=== PATIENT | female | born 1940 | race Caucasian/White ===

== ENCOUNTER 2017-08-14 09:00 | Outpatient (RCR) | payer MEDICARE ==
[~2017-08-14 09:00] MED LIST: LISINOPRIL; LISINOPRIL10 MG PO; MELOXICAM; MELOXICAM15 MG PO; NEXIUM40 MG PO; SIMVASTATIN40 MG PO
== END 2017-08-26 ==
LOC: PT 09:00
PROVIDERS: ATTEND Orthopaedic Surgery
DX: Z96.611 Presence of right artificial shoulder joint (principal); Z47.1 Aftercare following joint replacement surgery; M25.611 Stiffness of right shoulder, not elsewhere classified; M62.81 Muscle weakness (generalized)
CPT/HCPCS: 97010; 97110 ×4; 97140 ×4; G8984; G8985

== ENCOUNTER 2018-12-13 14:15 | Inpatient (IN) | payer MEDICARE ==
[~2018-12-13] VITALS: Ht 172.7 cm; Wt 108.9 kg
[2018-12-13] MEDS ORDERED: SODIUM CHLORIDE 0.9% 1000ML 1,000 ML ONE (15:29)
--- NOTE | 2018-12-13 15:40 | Diagnostic Imaging Report ---
EXAM: CHEST SINGLE (PORTABLE) DATE: 12/13/2018 2:52 PM INDICATION: ^CHEST PAIN ^Y COMPARISON: None FINDINGS: Lines and tubes: None Heart size normal. No focal pulmonary opacity, pleural effusion or pneumothorax. Minimal atelectasis at the lung bases. Upper abdomen unremarkable. No acute bony abnormality. Right shoulder arthroplasty hardware noted. There is apparent resection of the distal right clavicle. IMPRESSION: No evidence for acute disease. Signed by: Dr. Srinivasa Kemp M.D. on 12/13/2018 3:37 PM
[2018-12-13 15:49] LABS: BASOPHILS # (AUTO) 0.1 (0.0-0.1); BASOPHILS % 0.8 % (0.0-1.0); EOSINOPHILS # (AUTO) 0.2 (0.0-0.4); EOSINOPHILS % 2.3 % (0.0-6.0); HEMATOCRIT 33.1 % (34.2-44.1); LYMPHOCYTES # (AUTO) 1.6 (1.0-3.2); MEAN CORPUSCULAR HEMOGLOBIN 30.8 pg (28-32); MEAN CORPUSCULAR HGB CONC 33.2 g/dL (31-35); MEAN CORPUSCULAR VOLUME 92.7 fL (81-99); MONOCYTES # (AUTO) 0.6 (0.2-0.8); MONOCYTES % 9.2 % (4.4-11.3); NEUTROPHILS # (AUTO) 4.2 (2.1-6.9); NEUTROPHILS % 62.8 % (38.7-80.0); PLATELET COUNT 165 x10e3/uL (140-360); RED BLOOD COUNT 3.57 x10e6/uL (3.6-5.1); RED CELL DISTRIBUTION WIDTH 18.3 % (11.7-14.4)
[2018-12-13 15:50] LABS: CLARITY,URINE CLEAR (CLEAR); COLOR,URINE YELLOW (YELLOW)
[2018-12-13 15:51] LABS: BILIRUBIN,URINE NEGATIVE (NEGATIVE); EPITHELIAL CELLS,URINE FEW /LPF; KETONES,URINE NEGATIVE (NEGATIVE); LEUKOCYTE ESTERASE ,URINE TRACE (NEGATIVE); NITRITE,URINE NEGATIVE (NEGATIVE); PROTEIN,URINE DIPSTICK NEGATIVE (NEGATIVE); URINE UROBILINOGEN 0.2 mg/dL (0.2 - 1)
[2018-12-13 16:06] LABS: ALBUMIN 2.9 g/dL (3.5-5.0); ALBUMIN/GLOBULIN RATIO 0.8 (0.8-2.0); ANION GAP 13.2 mmol/L (8-16); CREATININE, SERUM 1.39 mg/dL (0.57-1.11); POTASSIUM 4.2 mmol/L (3.5-5.1)
[2018-12-13 16:07] LABS: INR 1.08; PARTIAL THROMBOPLASTIN TIME 27.4 seconds (23.8-35.5); PROTHROMBIN TIME 14.5 seconds (11.9-14.5)
[2018-12-13 16:12] LABS: CREATINE KINASE MB 2.2 ng/mL (0-5.0)
[2018-12-13] MEDS ORDERED: CEFTRIAXONE SOD 1 GM/NS 50 ML 50 ML IV ONE (16:15)
--- NOTE | 2018-12-13 16:42 | Diagnostic Imaging Report ---
EXAMINATION: Head CT HISTORY: Dizziness, disoriented, blurry vision COMPARISON: None. TECHNIQUE: Multidetector axial images were obtained without contrast from the foramen magnum to the vertex . The images were reconstructed using brain and bone algorithms. Thin section brain images were reformatted into coronal and sagittal planes. Image quality: Motion/streaking artifact limits the evaluation of the skull base and posterior cranial fossa. Dose modulation, iterative reconstruction, and/or weight based adjustment of the mA/kV was utilized to reduce the radiation dose to as low as reasonably achievable. FINDINGS: Parenchyma: 1. Few scattered white matter hypodensities, most likely nonspecific chronic microvascular ischemic changes. 2. No mass or hemorrhage. No CT evidence of acute territorial vascular insult. Extra-axial spaces:No abnormal density. No extra-axial fluid collections Brain volume: Normal for age. Ventricles: No hydrocephalus or displacement. Arteries: No density suggestive of thrombus. Dural sinuses: No abnormal density. Extra-axial spaces: No abnormal density. Foramen magnum: No mass, Chiari malformation, or basilar invagination. Sella: No obvious mass. Paranasal/mastoid sinuses: Imaged portions unremarkable. Skull/Scalp: No lytic or blastic lesions. No fractures. IMPRESSION: 1. No acute intracranial abnormalities. 2. Mild chronic microvascular ischemic changes. Signed by: Dr. Darlene Yusuf M.D. on 12/13/2018 4:39 PM
[2018-12-13] MEDS ORDERED: SODIUM CHLORIDE 0.9% 1000ML 1,000 ML IV SCH (17:45)
[2018-12-13] MEDS ORDERED: METFORMIN HCL500 MG PO (17:59)
[2018-12-13] MEDS ORDERED: LYRICA75 MG PO (17:59)
[2018-12-13] MEDS ORDERED: POTASSIUM CHLO10 ME1 PO (17:59)
[2018-12-13] MEDS ORDERED: DEXTROSE 50% SYRINGE 50 ML IV PRN (18:30)
--- OUTSIDE RECORDS SUMMARY | 2018-12-13 18:37 | XMS REPORT ---
Author Author [facility] Address Unknown Phone Unavailable Care Team Providers Care Aoc Director Combat Plans Officer Name Role Phone Elieser GARCIA Unavailable Unavailable Payers Payer Name Policy Type Policy Number Effective Date Expiration Date Problems This patient has no known problems. Allergies, Adverse Reactions, Alerts Allergy Name Allergy Type Status Severity Reaction(s) Onset Date Inactive Date Treating Clinician Comments Sulfa (Sulfonamide Antibiotics) DA Active HI 2018-12-10 00:00:00 Sulfa (Sulfonamide Antibiotics) DA Active HI 2018-12-09 00:00:00 Sulfa (Sulfonamide Antibiotics) DA Active U 2016-03-29 00:00:00 Medications This patient has no known medications. Results Test Description Test Time Test Comments Text Results Atomic Results Result Comments CT BRAIN 2018-12-13 16:37:00 [place] [address] Patient Name: FANTA SANTORO MR #: [id number] : 1940 Age/Sex: 77/F Req #: [id number] Adm Physician: Ordered by: KHADIJAH GARCIA MD Report #: [id number] Location: ER Room/Bed: Procedure: [id number] CT/CT BRAIN WO Exam Date: 12/13/18 Exam Time: 1550 REPORT STATUS: Signed EXAMINATION: Head CT HISTORY: Dizziness, disoriented, b lurry vision COMPARISON: None. TECHNIQUE: Multidetector axial images were obtained without contrast from the foramen magnum to the vertex . The images were reconstructed using brain and bone algorithms. Thin section brain images were reformatted into coronal and sagittal planes. Image quality: Motion/streaking artifact limits the evaluation of the skull base and posterior cranial fossa. Dose modulation, iterative reconstruction, and/or weight based adjustment of the mA/kV was utilized to reduce the radiation dose to as low as reasonably achievable. FINDINGS: Parenchyma: 1. Few scattered white matter hypodensities, most likely nonspecific chronic microvascular ischemic changes. 2. No mass or hemorrhage. No CT evidence of acute territorial vascular insult. Extra-axial spaces:No abnormal density. No extra-axial fluid collections Brain volume: Normal for age. Ventricles: No hydrocephalus or displacement. Arteries : No density suggestive of thrombus. Dural sinuses: No abnormal density. Extra-axial spaces: No abnormal density. Foramen magnum: No mass, Chiari malformation, or basilar invagination. Sella: No obvious mass. Paranasal/mastoid sinuses: Imaged portions unremarkable. Skull/Scalp: No lytic or blastic lesions. No fractures. IMPRESSION: 1. No acute intracranial abnormalities. 2. Mild chronic microvascular ischemic changes. Signed by: Dr. Chemo Yusuf M.D. on 12/13/2018 4:39 PM Dictated By: CHEMO YUSUF MD Transcribed By: FIORELLA on 12/13/18 1639 COPY TO: KHADIJAH GARCIA MD CHEST SINGLE (PORTABLE) 2018-12-13 15:35:00 [place] [address] Patient Name: FANTA SANTORO MR #: [id number] : 1940 Age/Sex: 77/F Req #: [id number] Adm Physician: Ordered by: KHADIJAH GARCIA MD Report #: [id number] Location: ER Room/Bed: Procedure: [id number] DX/CHEST SINGLE (PORTABLE) Exam Date: Exam Time: REPORT STATUS: Signed EXAM: CHEST SINGLE (PORTABLE) DATE: 12/13/2018 2:52 PM INDICATION: CHEST PAIN Y COMPARISON: None FINDINGS: Lines and tubes: None Heart size normal. No focal pulmonary opacity, pleural effusion or pneumothorax. Minimal atelectasis at the lung bases. Upper abdomen unremarkable. No acute bony abnormality. Right shoulder arthroplasty hardware noted. There is apparent resection of the distal right clavicle. IMPRESSION: No evidence for acute disease. Signed by: Dr. Naomy Woodard M.D. on 12/13/2018 3:37 PM Dictated By: NAOMY WOODARD MD 36 Transcribed By: FIORELLA on 12/13/181536 COPY TO: KHADIJAH GARCIA MD - XR FLUORO FOR SPINE INJ 2018-12-10 13:37:00 Patient Name: FANTA SANTORO Unit No: [id number] EXAMS: CPT CODE: [id number] XR FLUORO FOR SPINE INJ 07404 LUMBAR TRANSFORAMINAL INJECTION REFERRING PHYSICIAN: PREOPERATIVE DIAGNOSIS: Degenerative Lumbar Disc Disease. POSTOPERATIVE DIAGNOSIS: Lumbar radiculopathy PROCEDURES PERFORMED 1. Fluoroscopically guided needle localization of the bilateral L5, right L4 spinal nerve/nerves with transforaminal epidural steroid injection/injections. 2. Transforaminal epidurogram/epidurograms at bilateral L5, right L4. FINDINGS: Poor filling all. Concordant provocation right L4 hip right L5 buttock. Pain relief- %. ANTIBIOTIC: Cefazolin ESTIMATED BLOOD LOSS: Minimal ANESTHESIA: (TIVA )Total intravenous anesthetic (patient intolerant to sedatives and hypnotics) COMPLICATIONS: None DETAILS OF PROCEDURE: After obtaining stable vital signs, informed consent and IV access, with no known contraindications to proceeding, the patient was taken to the fluoroscopy suite and placed in a prone position with all extremities padded and appropriate monitors placed. A sterile prep and drape was performed over the lumbosacral spine. Using fluoroscopic visualization at each level the insertion site was marked for a paravertebral approach to the foramen. Using standard technique, a 25 gauge needle was advanced to the base of the pedicle. In AP view, final positioning was obtained outside the 6 on the clock position on the pedicle. Then, 1 ml of Isovue-300 contrast was injected to produce the epidurograms. No paresthesias were elicited with needle insertion or injection and there were no signs of intravascular or intrathecal uptake. Then, with 1 ml of 4% lidocaine and 10 mg of triamcinolone was injected incrementally with frequent negative aspirations. There were no signs of intravascular or intrathecal uptake. Each subsequent level was done using the same technique and medications. The patient's vital signs remained stable. The patient was taken to the PACU in good condition. at 9819 Reported and signed by: Eb Coronado M.D. [facility] NAME: FANTA SANTORO [address] [facility] PHYS: Eb Ramirez MD [place], [place] [address] : 1940 AGE: 77 SEX: F LOC: [place] PHONE #: [phone] EXAM DATE: 12/10/2018 STATUS: REG [facility] FA[place] #: [phone] RAD #: D/C DT PAGE 1 Signed Report (CONTINUED) Patient Name: FANTA SANTORO Unit No: [id number] EXAMS: CPT CODE: [id number] XR FLUORO FOR SPINE INJ 54914 <Continued> CC: Eb Coronado MD Technologist: CARL CÁRDENAS RT(R) Transcribed D/ (5525) tWERO [facility] NAME: FANTA SANTORO [address] [facility] PHYS: Eb Ramirez MD [place], [place] [address] : 1940 AGE: 77 SEX: F LOC: [place] PHONE #: [phone] EXAM DATE: 12/10/2018 STATUS: REG [facility] [place] FAX #: [phone] RAD #: D/C DT PAGE 2 Signed Report Patient Name: FANTA SANTORO Unit No: [id number] EXAMS: CPT CODE: [id number] XR FLUORO FOR SPINE INJ 52194 <Continued> Orig Print D/T: S: 12/10/2018 (1340) [facility] NAME: FANTA SANTORO [address] [facility] PHYS: DOCUD - Doctor,Eb Tomlinson MD [place], [place] [address] : 1940 AGE: 77 SEX: F LOC: [place] PHONE #: [phone] EXAM DATE: 12/10/2018 STATUS: REG [facility] [place] FAX #: [phone] RAD #: D/C DT PAGE 3 Signed Report GLUBED 2018-12-10 13:26:00 GLUBED (test code=GLUBED) 87 mg/dL 60-125 [id number] 11:59:00* Test Item Value Reference Range Comments GLUBED (test code=GLUBED) 101 mg/dL 60-125
--- OUTSIDE RECORDS SUMMARY | 2018-12-13 18:37 | XMS REPORT | Clinical Summary ---
Author Author [facility] Address Unknown Phone Unavailable Care Team Providers Care Fuselage Framer Name Role Phone Sandra Sherwood MD PCP Allergies Comments Active Allergy Reactions Severity Noted Date Not sure what reaction is Sulfa (Sulfonamide Other (See 04/09/2017 Antibiotics) Comments) Medications End Date Status Medication Sig Dispensed Refills Start Date Active lisinopril Take 20 mg by 0 (PRINIVIL,ZESTRIL) 20 mg mouth daily. tablet Active metFORMIN (GLUCOPHAGE) Take 500 mg 0 500 mg tablet by mouth daily with breakfast. Active omeprazole (PriLOSEC) 40 Take 40 mg by 0 MG capsule mouth daily. Patient takes it 3 times a week Active propranolol (INDERAL) 20 Take 20 mg by 0 MG tablet mouth 2 (two) times a day. Active simvastatin (ZOCOR) 40 MG Take 40 mg by 0 tablet mouth nightly. Active gabapentin (NEURONTIN) Take 1 30 capsule 1 300 mg capsule (300 7 capsuleIndications: Acute mg total) by pain of right shoulder mouth daily. 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 Last Filed Vital Signs Not on file Plan of Treatment Health Maintenance Due Date Last Done Comments SHINGLES VACCINES (#1) 1988 65+ PNEUMOCOCCAL VACCINE 12/31/2003 (1 of 2 - PCV13) PNEUMOCOCCAL 12/31/2003 POLYSACCHARIDE VACCINE AGE 65 AND OVER INFLUENZA VACCINE 03/27/2019 Implants Device Identifier Shelf Expiration Date Model / Serial / Lot Implanted Type Area Manufactur er 08/05/2020 [id number] / / [id number] 6.5mm Center Screw - 44mm - IPM Right: Shoulder KENYATTA [id number] IMPLANT ORTHOP[employer]IC Implanted: Qty: 1 on 05/04/2017 by DEVICES Jony Byrd MD [id number] [id number] / / Shoulder Glenoid Baseplate Reunion IPM Right: Shoulder KENYATTA Rsa - [id number] IMPLANT ORTHOPEDIC Implanted: Qty: 1 on 05/04/2017 by DEVICES Jony Byrd MD [id number] 2E 3606 / / Glenosphere - 36mm Chioma X 6mm Thk IPM N/A: N/A KENYATTA 2mm Eccentric - [id number] IMPLANT ORTHOPEDIC Implanted: Qty: 1 on 05/04/2017 by DEVICES Jony Byrd MD [id number] [id number] / / 4.5mm Peripheral Screw - 36mm - IPM Right: Shoulder KENYATTA [id number] IMPLANT ORTHOPEDIC Implanted: Qty: 1 on 05/04/2017 by DEVICES Jony Byrd MD [id number] [id number] / / 4.5mm Peripheral Screw - 24mm - IPM Right: Shoulder KENYATTA [id number] IMPLANT ORTHOPEDIC Implanted: Qty: 1 on 05/04/2017 by DEVICES Jony Byrd MD 02/16/2022 [id number] P 2011 / / [id number] Reunion Tsa - Press-Fit Humeral IPM Right: Shoulder KENYATTA Stem 12mm - [id number] IMPLANT ORTHOPEDIC Implanted: Qty: 1 on 05/04/2017 by DEVICES Jony Byrd MD 11/15/2021 [id number] S 3604 / / [id number] Humeral Insert - 36mm X 4mm IPM Right: Shoulder KENYATTA Standard - [id number] IMPLANT ORTHOPEDIC Implanted: Qty: 1 on 05/04/2017 by DEVICES Jony Byrd MD 5570 3604 / / Humeral Cup - 36mm Chioma X 4mm Thk - IPM N/A: N/A KENYATTA [id number] IMPLANT ORTHOPEDIC Implanted: Qty: 1 on 05/04/2017 by DEVICES Jony Byrd MD [id number] [id number] / / 4.5mm Peripheral Screw - 36mm - IPM Right: Shoulder KENYATTA [id number] IMPLANT ORTHOPEDIC Implanted: Qty: 1 on 05/04/2017 by DEVICES Jnoy Byrd MD [id number] [id number] / / 4.5mm Peripheral Screw - 36mm - IPM Right: Shoulder KENYATTA [id number] IMPLANT ORTHOPEDIC Implanted: Qty: 1 on 05/04/2017 by DEVICES Jony Byrd MD 08/26/2018 [id number] / / [id number] Cement Bone Full-Dose Premxd W/ Surgical Right: Shoulder KENYATTA Tobr Simplex P Pack 10/Ea - Bone ORTHOPEDIC [id number] Cement S Implanted: Qty: 1 on 05/04/2017 by HIPS-KNEES Jony Villarreal MD Results Not on fileafter 12/12/2017 Insurance Payer Benefit Subscriber ID Type Phone Address Plan / Group HUMANA MEDICARE HUMANA xxxxxxxxx PPO MEDICARE PPO/PFFS/E [facility] Advance Directives Patient has advance care planning documents on file. For more information, mary pereyra contact: Joshua Chen [address] [place] [address]
--- OUTSIDE RECORDS SUMMARY | 2018-12-13 18:37 | XMS REPORT | Encounter Summary ---
Author Organization Unknown Address [address] [place] [address] Phone [phone] Care Team Providers Care Mortuary Technician Name Role Phone Dr. Sandra Sherwood 3 [phone] Sandra Sherwood MD 3 [phone] Michael Juan MD 82 [phone] Wesly Roy (Spouse) 62 [phone] Yareli Martinez MD 118 [phone] Nakul Omer DPM 120 [phone] Gabe Cary MD 121 [phone] Michael Watters 130 [phone] Jony Villarreal MD 130 [phone] Geoffrey Trevino OD 240 [phone] Reason for Visit Hyperthyroidism; Type 2 diabetes mellitus without complication Instructions 1. Benign essential hypertension 2. Type 2 diabetes mellitus metformin 500 mg tablet 3. Depression screening learning about depression 4. At risk for falls preventing falls: care instructions 5. Body mass index 30+ - obesity learning about healthy weight 6. Normal grief reaction Discussion Note: None recorded. Plan of Care Reminders Provider Appointments Est Patient 02/24/2019 9:30AM Sandra Sherwood MD Lab None recorded. Referral None recorded. Procedures None recorded. Surgeries None recorded. Imaging None recorded. Medications Name Start Date qd diclofenac 1 % topical gel folic acid one tablet per day folic acid 1 mg tablet Humira Pen 40 mg/0.8 mL subcutaneous kit once every other week lisinopril 20 mg tablet TAKE ONE TABLET BY MOUTH DAILY Lyrica 75 mg capsule Take 1 capsule twice a day by oral route. metformin 500 mg tablet TAKE ONE TABLET BY MOUTH DAILY methotrexate six tablets once a week methotrexate sodium 2.5 mg tablet 6 tablets once weekly omeprazole 40 mg capsule,delayed release TAKE ONE CAPSULE BY MOUTH DAILY NEEDED simvastatin 40 mg tablet Take 1 tablet every day by oral route. Medications Administered None recorded. Vitals Height Weight BMI Blood Pressure 5 ft 8 in 239.5 lbs 36.4 kg/m2 130/70 mm[Hg] Lab Results None recorded. Allergies Code Code System Name Reaction Severity Status Onset Sulfa (Sulfonamide Antibiotics) Active Problems Name Status Onset Date Source Type 2 Diabetes Mellitus without Complication Active 04/24/2016 Pure Hypercholesterolemia Active 04/24/2016 Benign Essential Hypertension Active 04/24/2016 Gastroesophageal Reflux Disease without Esophagitis Active 04/24/2016 Hyperthyroidism Active 01/20/2017 Multinodular Goiter Active 02/23/2017 Rheumatoid Arthritis Active 02/23/2017 Chronic Kidney Disease Stage 3 Active 02/24/2017 Amputated Toe Active 01/07/2018 Peripheral Vascular Disease Active 01/20/2018 Osteopenia Active 02/16/2018 Acid Reflux Active 04/11/2018 Procedures Date Name Performed by 08/27/2014 Knee Surgery Information not available 12/21/2009 Colonoscopy Information not available Carpal Tunnel Surgery Information not available Shoulder Surgery Procedure Information not available Foot/toes Surgery Procedure Information not available Back Surgery Information not available Hysterectomy (Total) Information not available Vaccine List Vaccine Type influenza, high dose seasonal 05/25/20160.5 mL 07/02/20180.5 mL influenza, injectable, quadrivalent 05/27/2015 06/12/2017 pneumococcal conjugate PCV 13 05/25/20160.5 mL pneumococcal polysaccharide PPV23 06/01/20170.5 mL Tdap 04/24/20160.5 mL zoster 06/01/20170.65 mL Social History Smoking Status Unknown If Ever Smoked (1 PPW) Past Encounters 12/02/2018 Benign Essential Hypertension; Type 2 Diabetes Mellitus; Depression Screening; At Risk for Falls; Body Mass Index 30+ - Obesity; Normal Grief Reaction Sandra Sherwood MD: [address] [place] [address], Ph. History of Present Illness Note:77yo female presents with her daughter, Salima, Patient is wanting a refill of her metformin only. Last visit five months ago on 07/02/18.<div>Since last visit, pt was seen by Dr Geoffrey Trevino on 09/18/18 for diabetic eye exam at [facility]. No diabetic retinopathy, return in one year.</div><div>
</div><div>Pt is very sad as her in Sep. He had advanced dementia & multiple health issues. Recently observed his birthday on November 21 (he would have been 86yo) and their wedding anniversary on November 24 (58yrs this year). Has good support system for grief. Daughter living with her. Tearful with small reminders (for instance, checking into appt & changing marital status to ).</div><div>
</div><div>Rheum consult note, Saba Allen in Dr Cary's office from 10/31/18 reviewed regarding RA, OA, osteopenia. Continue Humira, MTX. Considering knee replacement this summer. Sees Dr Michael Watters, ortho & Dr Coronado, pain management. Reviewed 10/31/[address] Cary's office. Neg hepatitis panel. ESR 8, hgb 12.7, wbc 8.6, neg CRP, neg coccidiodes & histoplasma Antibodies, glu 110, GFR 54, Na 143, K 4.8, AST 13, quantiferon gold TB neg.</div><div>Continuing on both MTX & Humira for RA. No change to medication doses. </div><div>
</div><div><div>Previously:< /div><div><div>Saw electrical prospector, Dr. Tyra Jhaveri in Jul 2017 for cardiac stress test & echo - normal per pt report. </div><div>Saw Dr. Martinez, traffic representative in Jul. Stable kidney fxn - no change in medication. No need to return unless change in status.</div><div>Saw dev technical mgr, Dr. Rolanda Kyle regarding hyperthyroidism & thyroid nodule. She said to observe. No need to return unless change in status.<div><span style="font-size: 14px;">Had right< /span><span style="font-size: 14px;"> shoulder replacement on Sunday, May 04, [address] [facility] [address] Villarreal, ortho</span><span style="font-size: 14px;">.< /span>
</div><div><span style="font-size: 14px;">Had right trigger finger of right middle finger - has seen Dr. Santana in past & had injection to that finger - was told with next recurrence would need surgery.</span></div><div ><div><span style="font-size: 14px;">Saw podiatry, Dr. Nakul Omer (one month after starting Lyrica for foot cramps). Lyrica working.</span>
</div><div>< div>
</div><div>Last mammogram about 2014. Last DEXA in 2013. Does not want order at this time.
</div><div>Last colonoscopy 2009. Does not want order at this time.</div><div>No CP or SOB. No lightheadedness.</div></div></div></div>< /div></div> Review of Systems:ROS as noted in the HPI Review of Systems Comprehensive General Adult ROS Reported By: Patient Constitutional: Constitutional: no fever Eyes: Eyes: no vision change Cardiovascular: Cardiovascular: no chest pain, no shortness of breath when walking, no shortness of breath when lying down, no palpitations, known heart murmur Respiratory: Respiratory: no cough, no wheezing, no shortness of breath Gastrointestinal: Gastrointestinal: no abdominal pain Musculoskeletal: Musculoskeletal: arthralgias/joint pain, swelling in the extremities Integumentary: Skin: no rashes Neurologic: Neurologic: no loss of consciousness, no headaches Psychiatric: Psych: depression, anxiety; grief of 's 09/2018 Physical Exam General Adult Exam (male), General Adult Exam (Female) Reported By: Patient Constitutional: General Appearance: healthy-appearing, obese. Level of Distress: NAD Psychiatric: Mental Status: active and alert, depressed; tearful regarding Eyes: Lids and Conjunctivae: non-injected, no discharge. Pupils: PERRLA. EOM: EOMI Neck: Neck: supple, trachea midline. Thyroid: no enlargement, non-tender, palpable nodule Lungs: Auscultation: breath sounds normal, good air movement, no wheezing, no rales/crackles Cardiovascular: Heart Auscultation: RRR, normal S1, normal S2, murmur, LALIT. Neck vessels: no carotid bruits. Pulses including femoral / pedal: normal throughout Abdomen: Inspection and Palpation: soft, non-distended, no tenderness, no guarding Musculoskeletal:: Joints, Bones, and Muscles: no tenderness, limited ROM. Extremities: no edema, no palpable cord, varicosities Neurologic: Gait and Station: normal gait Skin: Inspection and palpation: no rash, no lesions
--- NOTE | 2018-12-13 19:01 | Diagnostic Imaging Report ---
EXAMINATION: CT scan of the chest with contrast. TECHNIQUE: Helical CT images of the chest were performed from the lung apices to the level of the adrenal glands after the intravenous administration of 100 cc of Isovue 300. Coronal and sagittal reformatted images were obtained.Dose modulation, iterative reconstruction, and/or weight based adjustment of the mA/kV was utilized to reduce the radiation dose to as low as reasonably achievable. COMPARISON: None. CLINICAL HISTORY:Chest pain DISCUSSION: LINES/TUBES: None. LUNGS AND AIRWAYS: Age-related interstitial change with mosaic attenuation of the lungs. No consolidative pneumonia. No concerning mass lesion. The airways are normal, without endobronchial lesions. Filling defect within a right lower lobe pulmonary artery image 61 and within a left upper lobe pulmonary artery image 47. PLEURA: No pneumothorax or pleural effusions. HEART AND MEDIASTINUM: The thyroid gland is normal. The heart and pericardium are within normal limits. LYMPH NODES: There is no mediastinal, hilar or axillary lymphadenopathy. ABDOMEN: Bilateral renal calculi. BONES AND SOFT TISSUES: Right shoulder arthroplasty. IMPRESSION: Bilateral segmental pulmonary emboli. Signed by: Dr. Goran Gonzalez M.D. on 12/13/2018 6:57 PM
--- NOTE | 2018-12-13 19:32 | NUR ---
Report received and walking rounds complete. Pt A&O and in no apparent distress. Pt on room and tele. All safety measures ensured, bed alarm on, and call paredes near. Pt encouraged to use call paredes for assistance.
[2018-12-13 19:40] VITALS: BP 134/60
--- NOTE | 2018-12-13 19:42 | NUR ---
Asked ER about pt report that states pulmonary emboli. RN stated that he will check on report and that it may be a report in error of the wrong chart. Pt assessed and has no complaints of chest pain or discomfort, lungs sounds clear, and vitals stable. Will continue to monitor pt for any changes.
[2018-12-13 20:01] VITALS: BP 134/60
[2018-12-13] MEDS: INSULIN LISPRO 100 UNIT/1 ML 3ML VIAL SQ SCH (21:00)
[2018-12-13] MEDS ORDERED: SODIUM CHLORIDE 0.9% 50ML 50 ML ONE (21:49)
[2018-12-13] MEDS ORDERED: IOPAMIDOL 370 MG/ML 200 ML INFUS..BTL INJ ONE (21:49)
[2018-12-13 23:49] VITALS: BP 106/51
[2018-12-14] VITALS (7 sets, daily range): BP systolic 119–133; BP diastolic 58–70
[2018-12-14 00:03] LABS: CREATINE KINASE MB 1.6 ng/mL (0-5.0)
[2018-12-14 06:49] LABS: CREATINE KINASE MB 1.7 ng/mL (0-5.0)
--- NOTE | 2018-12-14 06:51 | NUR ---
Handoff report and walking rounds with outgoing shift supervisor film processing nurse. Pt rec'd awake, oriented, denies SOB, denies chest pain.
--- NOTE | 2018-12-14 06:56 | NUR ---
Report given and walking rounds complete. Pt resting in bed and in no apparent distress. All safety measures ensured.
[2018-12-14 07:04] LABS: CHOL/HDL RATIO 3.1 (3.0-3.6)
[2018-12-14] MEDS: INSULIN LISPRO 100 UNIT/1 ML 3ML VIAL SQ SCH ×4 (07:30→20:14)
[2018-12-14] MEDS ORDERED: LISINOPRIL 10 MG TAB PO SCH (09:00)
[2018-12-14] MEDS ORDERED: ENOXAPARIN SOD INJ 60 MG/0.6 ML SYR SC SCH (09:00)
--- NOTE | 2018-12-14 09:28 | NUR ---
RECEIVED REPORT FROM NATALIE IN OBS AWAITING FOR PT TO ARRIVE TO UNIT
[2018-12-14] MEDS: PREGABALIN 75 MG CAP PO SCH (09:30)
--- NOTE | 2018-12-14 10:04 | NUR ---
Pt transferred to 104 in stable condition with all personal belongings.
--- NOTE | 2018-12-14 10:13 | NUR ---
RECEIVED PT TO FLOOR AA0X3 PT FAMILY IS AT BEDSIDE PT IS IN NO S.S OF DISTRESS DENIES PAIN PT HAS A RIGHT AC 20 G NOW WITH IV FLUIDS AT 100 SITE IS CLEAN AND DRY WILL CONTINUE TO MONITOR AT THIS TIME, SIDE RAILSX2, BED WHEELS LOCKED ,CALL LIGHT IS WITHIN EASY REACH INSTRUCTED TO CALL FOR ASSISTANCE IF NEEDED
--- NOTE | 2018-12-14 10:19 | NUR ---
CASE MANAGEMENT INITIAL ASSESSMENT Sap Basis Administrator to bedside to discuss plan of care with patient/family. CM/SW role and care transitions discussed. Anticipated discharge plan discussed along with duration of care. CM/SW discussed patients right to make decisions in care. CM/SW work hours given. Patient lives: her daughter and grandson live with her in a single story home in [place]. Verified demographic info Admit/Transfer: ED Hospital/ER visits since last admit:DENIES ANY RECENT POA/Emergency contact: daughter: KYMBERLY WILKERSON [phone] Current/Previous Home Health: DENIES PCP/Follow-up Care: DR. ANITHA FLETCHER Current/Previous DME: RW, RW W/ SEAT, 2 WHEELCHAIRS Medications (referring to index hospitalization or the first time you were in the hospital) a. Were changes made in your medications when you were in the hospital on [date of index hospitalization]? Yes X No Not sure Explain: Note: If no or not sure, please skip to question d b. Did you understand the changes? Yes No Explain: c. Were you able to obtain your new medications right away? Yes No n/a SNF only Explain: d. Were you able to take your medications like the doctor wanted you to? XYes No Explain: e. Did the hospital give you an accurate, easy to understand list of medications when you left? XYes No n/a SNF only Explain: Scale of 1-10 how comfortable does patient feel with disease management in outpatient settin Other Services: Employment Status: RETIRED Areas of Concerns: DENIES ANY Referral Needs: DENIES ANY Education Needs: EDUCATED ON GARCIA LETTER IMM/GARCIA given and signed (if applicable): GARCIA LETTER EXPLAINED. VERBALIZED UNDERSTANDING AND SIGNED. COPY TO PT AND ORIGINAL PLACED ON CHART Goal for discharge: TO RETURN HOME W/O NEEDS CM/SW left business card at the bedside with contact information. Name and number was also written on the patients whiteboard. Patient verbalized understanding of discussion. CM will follow-up with ongoing discharge and transition of care needs.
[2018-12-14] MEDS: SODIUM CHLORIDE 0.45% 1,000 ML IV SCH ×2 (10:21→20:21)
--- NOTE | 2018-12-14 12:21 | NUR ---
PT SATURATING 93% ON RA. JOAO SOB PLACED PT ON 02 2L NC FOR COMFORT. SATURATIONS UP TO 97% AT THIS TIME WILL CONTINUE TO MONITOR
--- NOTE | 2018-12-14 12:40 | Consultation ---
DATE OF CONSULTATION: 12/14/2018 REASON FOR CONSULTATION: Chest pain. CONSULTING PHYSICIAN: Dr. Alex Bernard. HISTORY OF PRESENT ILLNESS: This is a pleasant 77-year-old female, who presented with generalized weakness. According to the patient, for the last two weeks, she has been having some sense of rotation movement, she has not been feeling real good. She has been having chest pain with deep breathing and feeling of lightheadedness. She stated the symptoms have been going on that she decided to come into the emergency room for further evaluation. She started having right-sided chest pain on a scale of 3/10 with no radiation that get worse with deep breathing. She had a chest x-ray done that showed no evidence of acute disease and CT of the chest done that showed bilateral segmental pulmonary emboli. She denied any palpitation, any diaphoresis, any nausea or vomiting. Troponin x3 was negative. EKG showed normal sinus rhythm with no ST abnormalities. PAST MEDICAL HISTORY: Hypertension, diabetes, hyperlipidemia, and GERD. PAST SURGICAL HISTORY: Bilateral shoulder surgery, hand surgery, back surgery, hysterectomy, and left knee replacement surgery. FAMILY HISTORY: Noncontributory. SOCIAL HISTORY: She lives at home alone. The recently . MEDICATIONS: She was on Nexium, metformin, potassium, Lyrica, meloxicam, lisinopril, and simvastatin. ALLERGIES: SHE IS ALLERGIC TO SULFA. REVIEW OF SYSTEMS: Negative except those mentioned above. PHYSICAL EXAMINATION: VITAL SIGNS: Temperature 98.8, heart rate 91, blood pressure 126/67, respirations 20, oxygen saturation 96% on room air. GENERAL: She is awake, alert, and oriented x3. HEENT: Mucous membranes moist. NECK: Supple. LUNGS: Bilateral clear to auscultation. CARDIOVASCULAR: S1, S2 present. ABDOMEN: Soft. NEUROLOGICAL: Intact. EXTREMITIES: With no edema. LABS: Sodium 139, potassium 4.2, chloride 108, CO2 of 22, BUN 27, creatinine 1.39, glucose 94. White blood cells 6.66, hemoglobin 11.0, hematocrit 33.1, platelet 165. PT 14.5, PTT 27.4, INR 1.08. IMPRESSION: 1. Chest pain. 2. Bilateral pulmonary emboli. 3. Diabetes. 4. Hyperlipidemia. 5. Renal insufficiency. PLAN: 1. We will go ahead and get echocardiogram to assess the LV and the valve function. 2. We will get bilateral lower extremity venous Doppler to rule out any DVT. 3. She had been started on Lovenox. We will continue the same. P.O. anticoagulation before discharge. 4. Resume her home blood pressure medications. Further cardiac workup pending clinical course. Thank you for this consultation. Dictated by Terrance Monge NP MD HOMAR Finch/JARET /[id number] SARAN
--- NOTE | 2018-12-14 12:54 | NUR ---
PT STATES HITTING HER RIGHT ELBOW WITH BED WHEN GETTING BACK TO BED SKIN ABRASION NOTED (ABOUT [id number] IN DIAMETER) COVERED WITH GAUZE AND TEGADERM AT THIS TIME SITE NO LONGER BLEEDING PT IS BACK IN BED RESTING COMFORTABLY WILL CONTINUE TO MONITOR
[2018-12-14 14:33] LABS: CREATINE KINASE MB 1.4 ng/mL (0-5.0)
--- NOTE | 2018-12-14 15:01 | History and Physical ---
PRIMARY CARE PHYSICIAN: CHIEF COMPLAINT: Chest pain, dizziness, generalized weakness, and low blood pressure associated with some shortness of breath on exertion. SUMMARY: This is a 77-year-old female having symptoms of generalized weakness, dizziness, and exertional shortness of breath with off-balance for the past two weeks worsening on the day of her presentation to the emergency room. The patient is otherwise stable. She is admitted. The patient denied of any chest pain currently. She is at rest. Echocardiogram is obtained. CT scan of the chest with contrast revealed bilateral subsegmental pulmonary embolism. Lovenox is initiated. PAST MEDICAL HISTORY: Hypertension, diabetes type 2, dyslipidemia, obesity. PAST SURGICAL HISTORY: Noncontributory. SOCIAL HISTORY: The patient does not smoke or use alcohol. No recreational drugs. ALLERGIES: TO SULFA. HOME MEDICATIONS: Nexium, lisinopril, meloxicam, metformin, potassium, simvastatin, and Lyrica. REVIEW OF SYSTEMS: As above. PHYSICAL EXAMINATION: VITAL SIGNS: Temperature is 98, blood pressure 126/67, pulse rate is 91, respirations 22. GENERAL: The patient seems comfortable. She is not in acute distress. HEENT: Normocephalic, atraumatic. Anicteric. NECK: Supple grossly. PULMONARY: Diminished breath sounds bilaterally without any wheezing or rales. CARDIOVASCULAR: Regular rate and rhythm. ABDOMEN: Morbidly obese. Nontender and nondistention. No guarding. EXTREMITIES: No cyanosis or edema. NEUROLOGIC: There is no gross focal deficit. Moving all extremities. LABORATORY DATA: Sodium is 139, potassium 4.2, chloride 108, bicarb 22, BUN 27, creatinine 1.39, glucose is 94. WBC 6.7, hemoglobin 11, hematocrit 33, platelets is 165. CT scan of the chest with contrast showed bilateral subsegmental pulmonary embolism. IMPRESSION: 1. Bilateral pulmonary subsegmental embolism. Per RN here overnight stating that the ED physician was called and notified on the bilateral pulmonary embolism on CT scan and he stated that this could be a wrong CT scan on a wrong patient. We will need confirmation. V/Q scan is ordered. Lovenox given and venous Doppler of the lower extremity ordered as well. 2. Multiple symptoms of fatigue, chest discomfort atypically, and dizziness and shortness of breath on exertion. PLAN: We will obtain a V/Q scan. Put the patient on Lovenox for now. Venous Doppler of the lower extremity. Echocardiogram. We will consult Dr. Stone Hernandez. Dr. Kade Corey is seeing the patient. We will continue to monitor the patient on Lovenox for now. Admit the patient. Hold off on lisinopril. IV fluids gently to wash out the contrast. We will continue to monitor the patient closely. MD MALLORY Ruiz/MODL /[id number]
--- NOTE | 2018-12-14 18:12 | Diagnostic Imaging Report ---
EXAM: CT Abdomen and Pelvis WITHOUT contrast INDICATION: ^PAIN ^[id number] ^[id number] COMPARISON: CT chest 12/13/2018 TECHNIQUE: Abdomen and pelvis were scanned utilizing a multidetector helical scanner from the lung base to the pubic symphysis without administration of IV contrast. Absence of intravenous contrast decreases sensitivity for detection of focal lesions and vascular pathology. Coronal and sagittal reformations were obtained. Routine protocol was performed. IV CONTRAST: None. ORAL CONTRAST: None RADIATION DOSE: Total DLP: 888.97 mGy*cm Estimated effective dose: (DLP x 0.015 x size factor) mSv COMPLICATIONS: None FINDINGS: LINES and TUBES: None. LOWER THORAX: Increased subsegmental atelectasis in both lung bases. HEPATOBILIARY: No focal hepatic lesions. No biliary ductal dilation. GALLBLADDER: No radio-opaque stones or sludge. No wall thickening. SPLEEN: No splenomegaly. PANCREAS: No focal masses or ductal dilatation. ADRENALS: No adrenal nodules KIDNEYS/URETERS: No hydronephrosis. No cystic or solid mass lesions. Multiple right lateral due to's 5 mm nonobstructing calcified stones, at least 10 on the right and 7 on the left. No calcified stones in the ureters. GI TRACT: No abnormal distention, wall thickening, or evidence of bowel obstruction. Appendix is not visualized. PELVIC ORGANS/BLADDER: The urinary bladder is unremarkable. Hysterectomy. LYMPH NODES: No lymphadenopathy. VESSELS: Mild atherosclerotic calcifications of the abdominal aorta and pelvic arteries without aneurysm. PERITONEUM / RETROPERITONEUM: No free air or fluid. BONES: Unremarkable. SOFT TISSUES: Unremarkable. IMPRESSION: Bilateral nonobstructing nephrolithiasis. Bibasilar atelectasis, increased since 12/13/2018. Signed by: Dr. Feli Amin M.D. on 12/14/2018 6:09 PM
--- NOTE | 2018-12-14 18:53 | Diagnostic Imaging Report ---
Ventilation/perfusion lung scan Clinical Information: 77 F with chest pain Comparison: CT chest with contrast 12/13/2018; chest radiograph 12/13/2018 Discussion: Xenon-133 gas 15 mCi was administered via inhalation. Dynamic images of the lungs in the posterior projection were obtained through single breath, equilibrium, and washout phases. Distribution of tracer activity is mildly irregular throughout the lungs. There are no segmental ventilatory defects. Washout of tracer is diffusely delayed with diffuse air trapping. Perfusion images of the lungs were obtained in multiple projections following intravenous administration of approximately 6 mCi of Tc-99m MAA. Distribution of tracer is irregular throughout the lungs. The contours of the lungs are well demarcated. Distribution of tracer activity is mildly irregular throughout the lungs. No segmental perfusion defects are seen. The perfusion images are well-matched to the ventilation images. The cardiomediastinal silhouette is unremarkable. Impression: 1. Scan findings represent a VERY LOW probability for acute pulmonary embolic disease based on the PIOPED II criteria. 2. Scan findings are consistent with diffuse parenchymal and/or obstructive lung disease. 3. Patient identification by the nuclear fuels research engineer who was present for the CT chest performed yesterday and performed the VQ scan today. The same patient had both studies and the patient was positively identified as Felicia Roy. Signed by: Dr. Teressa Child M.D. on 12/14/2018 6:50 PM
--- NOTE | 2018-12-14 19:57 | Consultation ---
DATE OF CONSULTATION: Pulmonary Consultation REASON FOR THE CONSULT: Pulmonary embolism. CHIEF COMPLALINT: Shortness of breath. HISTORY OF PRESENT ILLNESS: Ms. Roy is a 77-year-old female. She presented to the emergency room with complaints of shortness of breath and generalized weakness. She has been off balance for the past two weeks. She reported that she also had pleuritic chest pain when she was taking deep breaths. It has been going on for almost two weeks, progressively getting worse. In the emergency room, the patient underwent a CT chest, which showed segmental pulmonary embolism. However, there is a confusion that if she those films belong to her. She has been started on Lovenox. REVIEW OF SYSTEMS: GENERAL: Denies any fever or chills. HEAD: Denies any head trauma. ENT: Denies any earache. CVS: Chest pain, shortness of breath. RESPIRATORY: Shortness of breath. The rest of the review of systems are negative except as in the HPI. PAST MEDICAL HISTORY: Hypertension, diabetes. PAST SURGICAL HISTORY: Noncontributory. FAMILY AND SOCIAL HISTORY: She does not smoke and does not drink. Recently her . She lives with her daughter. PHYSICAL EXAMINATION: VITAL SIGNS: Temperature 98.5, pulse of 99, blood pressure 130/66, respiratory rate of 18, O2 saturation 98%. HEENT: Head is atraumatic, normocephalic. NECK: Supple. CHEST: Clear to auscultation bilaterally. No wheezing. HEART: S1, S2 audible. ABDOMEN: Soft, nontender. EXTREMITIES: No pedal edema. NEUROLOGIC: Awake and alert. LABORATORY DATA: White count of 6.6, hemoglobin 11.0, platelets 165. Chemistry; creatinine is 1.39. Sodium 139, potassium 4.2, BUN 27, creatinine 1.39, chloride is 108. CT of the chest was done, which shows segmental pulmonary embolism. I have reviewed the images. ASSESSMENT/PLAN: Ms. Roy is a 77-year-old female. She presented to the emergency room with shortness of breath. CTA of the chest showed pulmonary embolism. However, there is a confusion between the ER nursing report and radiology interpretation. We are unable to make sure that the images for her CT are hers, so I will do a V/Q scan to confirm the presence of pulmonary embolism. The patient will be continued on Lovenox in the meantime. MARIZA and CKD stable. MD DILIA Saul/MODNathanael /[id number]
[2018-12-14] MEDS: ENOXAPARIN SODIUM INJ 100 MG/ML SYR SC SCH (20:21)
[2018-12-14] MEDS: SIMVASTATIN 40 MG TAB PO SCH (20:21)
[2018-12-15] VITALS (10 sets, daily range): BP systolic 100–149; BP diastolic 55–76
[2018-12-15 06:07] LABS: BASOPHILS % 0.7 % (0.0-1.0); EOSINOPHILS # (AUTO) 0.2 (0.0-0.4); EOSINOPHILS % 3.8 % (0.0-6.0); HEMATOCRIT 30.9 % (34.2-44.1); HEMOGLOBIN 10.1 g/dL (12.0-16.0); LYMPHOCYTES # (AUTO) 1.1 (1.0-3.2); LYMPHOCYTES % 24.6 % (18.0-39.1); MEAN CORPUSCULAR HEMOGLOBIN 30.3 pg (28-32); MEAN CORPUSCULAR HGB CONC 32.7 g/dL (31-35); MEAN CORPUSCULAR VOLUME 92.8 fL (81-99); MONOCYTES # (AUTO) 0.5 (0.2-0.8); MONOCYTES % 10.7 % (4.4-11.3); NEUTROPHILS # (AUTO) 2.6 (2.1-6.9); NEUTROPHILS % 58.4 % (38.7-80.0); PLATELET COUNT 136 x10e3/uL (140-360); RED BLOOD COUNT 3.33 x10e6/uL (3.6-5.1); RED CELL DISTRIBUTION WIDTH 18.2 % (11.7-14.4)
[2018-12-15] MEDS: SODIUM CHLORIDE 0.45% 1,000 ML IV SCH ×2 (06:16→15:00)
[2018-12-15 06:30] LABS: ANION GAP 11.9 mmol/L (8-16); BLOOD UREA NITROGEN 13 mg/dL (7-26); BUN/CREATININE RATIO 15 (6-25); CALCIUM 8.3 mg/dL (8.4-10.2); CARBON DIOXIDE 24 mmol/L (22-29); CHLORIDE 109 mmol/L (98-107); CREATININE, SERUM 0.85 mg/dL (0.57-1.11); EST GLOMERULAR FILTRATION RATE > 60 ML/MIN (60-); GLUCOSE 97 mg/dL (74-118); POTASSIUM 3.9 mmol/L (3.5-5.1); SODIUM 141 mmol/L (136-145)
[2018-12-15] MEDS: INSULIN LISPRO 100 UNIT/1 ML 3ML VIAL SQ SCH ×4 (07:30→21:19)
[2018-12-15] MEDS: PREGABALIN 75 MG CAP PO SCH (08:09)
[2018-12-15] MEDS: ENOXAPARIN SODIUM INJ 100 MG/ML SYR SC SCH ×2 (08:09→20:30)
[2018-12-15] MEDS ORDERED: PREGABALIN 75 MG CAP PO SCH (17:00)
--- NOTE | 2018-12-15 17:40 | NUR ---
RECEIVED A CALL FROM TELE STATING PT HR ELEVATED TO THE 130S UPON ARRIVE TO ROOM V/S TAKEN AND PT READDS 100/55 HR OF 80 AND 91% ON RA. PLACED PT ON 2 L NC PT DENIES PAIN OR DISCOMFORT PAGED MD WARNER FOR ORDERS SPOKE WITH MD BAXTER TO GIVE ONE DOSE OF DIG IV NOW AND A STAT EGK
--- NOTE | 2018-12-15 17:57 | NUR ---
DIG GIVEN. POTATO GRADER IS AT BEDSIDE PT STATES PALPITATIONS WITH NO S.S AT THIS TIME
[2018-12-15] MEDS ORDERED: DIGOXIN INJ 0.25 MG/ML 2 ML AMP IV ONE (18:00)
--- NOTE | 2018-12-15 18:22 | NUR ---
SPOKE TO MD WARNER REGARDING EKG RESULTS AND UNRESOLVED TACHYCARDIA .RATE IN THE 130. STATES "JUST WATCH HER" NO ORDERS RECEIVED AT THIS TIME
[2018-12-15] MEDS: SIMVASTATIN 40 MG TAB PO SCH (20:30)
[2018-12-16] VITALS: BP 98/55
[2018-12-16] MEDS: SODIUM CHLORIDE 0.45% 1,000 ML IV SCH (02:40)
[2018-12-16 04:00] VITALS: BP 122/60
[2018-12-16 07:22] VITALS: BP 132/74
[2018-12-16] MEDS: INSULIN LISPRO 100 UNIT/1 ML 3ML VIAL SQ SCH (07:30)
--- NOTE | 2018-12-16 16:52 | Discharge Summary ---
CONSULTANTS: 1. Dr. Kade Corey. 2. Dr. Michael Rendon. FINAL DIAGNOSES: 1. Bilateral subsegmental pulmonary embolism associated with shortness of breath. 2. Multiple chronic baseline problems. SUMMARY: This is a 77-year-old female, who came in with increasing shortness of breath. CT of the chest with contrast showed that the patient does have subsegmental bilateral pulmonary embolism. The patient was placed on anticoagulant therapy. Subsequently, she underwent V/Q scan, which showed low probability. The patient had multiple risk factors. She is stable. Echocardiogram showed normal ejection fraction. Lower extremity venous Doppler was negative for any DVT. The patient is otherwise stable. At baseline, she does have inflammatory arthritis, hypertension. She is on Humira and multiple other medications. Her shortness of breath has subsided. She still has some increasing dyspnea on exertion, but much improved than previously. The patient will go home today, discussed with the patient at length. She will get Xarelto 20 mg daily for three months. Discussed with Dr. Rendon. The patient is stable, discharged home, follow up as an outpatient with her family doctor and with me if request. The patient is otherwise stable, discharged home today. MD MALLORY Ruiz/JARET /[id number]
== END 2018-12-16 09:18 | disposition home or self-care (01) | DRG 176 ==
LOC: ER 14:15 → ERHOLD 18:34 → IMCU 19:31 → MED/SURG 12-14 10:07 → OBSVTOIN 12-14 11:06
PROVIDERS: ADMIT Internal Medicine; ATTEND Internal Medicine
DX: I26.99 Other pulmonary embolism without acute cor pulmonale (principal); M19.90 Unspecified osteoarthritis, unspecified site; E11.9 Type 2 diabetes mellitus without complications; E78.5 Hyperlipidemia, unspecified; E03.9 Hypothyroidism, unspecified; N28.9 Disorder of kidney and ureter, unspecified
CPT/HCPCS: 36415; 70450; 71045; 71260; 74176; 78582; 80048; 80053; 80061; 81001; 82550; 82553; 82948; 83880; 84443; 84484; 85025; 85379; 85610; 85730; 93005; 93306; 93970; 96372; 99284; A9540; A9558; G0378; J0696; J1160; J1650; J7030; Q9967

== ENCOUNTER → 2019-05-06 | Outpatient (CLI) | payer MEDICARE ==
[~2019-05-06] MED LIST changes: +IOPAMIDOL 370 MG/ML 200 ML INFUS..BTL INJ ONE; +LYRICA75 MG PO; +METFORMIN HCL500 MG PO; +POTASSIUM CHLO10 ME1 PO; +SODIUM CHLORIDE 0.9% 500ML 500 ML ONE; +SODIUM CHLORIDE 0.9% 50ML 50 ML ONE
[2019-05-06 09:39] LABS: CREATININE, SERUM 1.07 mg/dL (0.57-1.11)
--- NOTE | 2019-05-06 11:18 | Diagnostic Imaging Report ---
CT of the chest, with contrast, 05/06/2019. History: History of pulmonary emboli. Comparison: CT chest 12/13/2018. Technique: Multidetector CT scanning of the chest was performed from the level of the apices to the upper abdomen after intravenous administration of contrast. Coronal and sagittal multiplanar reformations were obtained. RADIATION DOSE: Total DLP: 530 mGy*cm Dose modulation, iterative reconstruction, and/or weight based adjustment of the mA/kV was utilized to reduce the radiation dose to as low as reasonably achievable. Discussion: Chest: The atria, ventricles, aorta, and main pulmonary artery are normal in size. The pulmonary arteries are well-opacified without evidence of filling defect. Prior segmental emboli have resolved. The thyroid is unremarkable. There is no evidence of axillary or mediastinal adenopathy. There is bibasilar dependent atelectasis. There is no evidence of consolidation, mass, or pleural effusion. Limited evaluation of the upper abdomen shows normal adrenal glands. Bones and soft tissues: No acute abnormality. Advanced degenerative changes are present throughout the thoracic spine. IMPRESSION: Normal CT of the chest. Interval resolution of bilateral pulmonary emboli. Signed by: Dewey Patel on 05/06/2019 11:14 AM
== END ==
LOC: CT 08:21
PROVIDERS: ATTEND Internal Medicine Cardiovascular Disease
DX: I27.82 Chronic pulmonary embolism (principal)
CPT/HCPCS: 36415; 71260; 82565; 84520; 96360; J7040; Q9967

== ENCOUNTER → 2019-07-03 | Outpatient (CLI) | payer OTHER ==
[~2019-07-03] MED LIST changes: -IOPAMIDOL 370 MG/ML 200 ML INFUS..BTL INJ ONE; -SODIUM CHLORIDE 0.9% 500ML 500 ML ONE; -SODIUM CHLORIDE 0.9% 50ML 50 ML ONE
--- NOTE | 2019-07-03 12:59 | Diagnostic Imaging Report ---
Examination: MRI BRAIN WO CONTRAST History: Diplopia. Abnormal gait. Comparison studies: Head CT performed December 13, 2018 Technique: Sagittal T2; axial DWI, FLAIR, GRE or SWI, T1, Coronal FLAIR. Intravenous contrast: None Findings: Scalp: No abnormal signal. No masses. Bone marrow: Normal in signal intensity. Brain volume: Adequate for age. No volume loss. Ventricles: Normal in size and configuration. No hydrocephalus. Extra-axial spaces: No abnormalities. Parenchyma: Again demonstrated are patchy and punctate areas of T2/FLAIR hyperintensity in the periventricular and subcortical white matter, nonspecific. No masses, hemorrhage, or acute vascular insults. Suprasellar and sellar region: No abnormalities. Craniocervical junction: No abnormalities. The foramen magnum is patent. No Chiari malformations. Vessels: Normal flow-voids in the arteries and sinuses. Additional findings:Bilateral slitlike orbital lenses. IMPRESSION: No acute intracranial abnormalities, specifically, no acute infarct. Unchanged mild chronic microvascular ischemic change when compared to prior head CT from December 13, 2018. Signed by: Dr. Shauna Monterroso M.D. on 07/03/2019 12:56 PM
== END ==
LOC: MRI 08:27
PROVIDERS: ATTEND Internal Medicine
DX: H53.2 Diplopia (principal); I48.91 Unspecified atrial fibrillation; R26.9 Unspecified abnormalities of gait and mobility; R42 Dizziness and giddiness; W01.0XXA Fall on same level from slipping, tripping and stumbling without subsequent striking against object, initial encounter
CPT/HCPCS: 70551

== ENCOUNTER 2019-07-21 10:43 | Outpatient (RCR) | payer MEDICARE | END 2019-07-26 | LOC: PT 10:43 | PROVIDERS: ATTEND Internal Medicine | DX: Z96.611 Presence of right artificial shoulder joint (principal); Z47.1 Aftercare following joint replacement surgery; M25.511 Pain in right shoulder; M62.81 Muscle weakness (generalized); M25.611 Stiffness of right shoulder, not elsewhere classified ==

== ENCOUNTER 2019-10-17 09:37 | Outpatient (RCR) | payer MEDICARE | END 2019-10-25 | LOC: PT 09:37 | PROVIDERS: ATTEND Internal Medicine | DX: M25.561 Pain in right knee (principal); M54.5 Low back pain; R26.9 Unspecified abnormalities of gait and mobility; M62.81 Muscle weakness (generalized); Z91.81 History of falling ==

== ENCOUNTER 2019-11-28 16:56 | Emergency (ER) | payer MEDICARE ==
[~2019-11-28] VITALS: Ht 172.7 cm; Wt 108.9 kg
[2019-11-28] MEDS ORDERED: CLINDAMYCIN PHOS 600 MG/ 4 ML VIAL IM ONE (17:30)
[2019-11-28] MEDS ORDERED: CLINDAMYCIN PHOS 600 MG/ 4 ML VIAL ONE (18:01)
== END 2019-11-28 18:22 | disposition home or self-care (01) ==
LOC: FSED 16:56
DX: L03.115 Cellulitis of right lower limb (principal); W54.8XXA Other contact with dog, initial encounter; I10 Essential (primary) hypertension; E11.9 Type 2 diabetes mellitus without complications; F41.9 Anxiety disorder, unspecified
CPT/HCPCS: 99282

== ENCOUNTER 2021-08-13 08:22 | Emergency (ER) | payer MEDICARE ==
[~2021-08-13] VITALS: Ht 172.7 cm; Wt 91.6 kg
[2021-08-13] MEDS ORDERED: NYSTATIN100000 UNI PO (09:31)
== END 2021-08-13 09:53 | disposition home or self-care (01) ==
LOC: FSED 09:00
DX: K13.0 Diseases of lips (principal); E11.9 Type 2 diabetes mellitus without complications; I10 Essential (primary) hypertension; E78.5 Hyperlipidemia, unspecified; M54.9 Dorsalgia, unspecified; G89.29 Other chronic pain
CPT/HCPCS: 99282

== ENCOUNTER 2022-06-29 11:42 | Emergency (ER) | payer MEDICARE ==
[~2022-06-29] VITALS: Ht 172.7 cm; Wt 94.3 kg
[~2022-06-29 11:42] MED LIST changes: +NYSTATIN100000 UNI PO
[2022-06-29] MEDS ORDERED: IOPAMIDOL 370 MG/ML 100 ML INFUS..BTL INJ ONE (13:00)
[2022-06-29] MEDS ORDERED: VENTOLIN HFA18 GM INH (14:07)
[2022-06-29 14:19] VITALS: BP 143/80
== END 2022-06-29 14:27 | disposition home or self-care (01) ==
LOC: FSED 12:05
DX: R06.09 Other forms of dyspnea (principal); I10 Essential (primary) hypertension; E11.9 Type 2 diabetes mellitus without complications; K21.9 Gastro-esophageal reflux disease without esophagitis; Z88.2 Allergy status to sulfonamides; Z79.84 Long term (current) use of oral hypoglycemic drugs; Z79.899 Other long term (current) drug therapy; Z86.711 Personal history of pulmonary embolism; Z86.718 Personal history of other venous thrombosis and embolism
CPT/HCPCS: 71045; 71260; 80053; 82553; 83880; 84484; 85379; 87400; 93005; 99284; Q9967

== ENCOUNTER 2025-03-25 13:00 | Outpatient (RCR) | payer MEDICARE ==
[~2025-03-25 13:00] MED LIST changes: +ARAVA20 MG PO; +ASPIRIN81 MG PO; +FOLIC ACID0.4 MG PO; +HUMIRA(CF)40 MG/0.1; +MULTI-VITAMIN1 EACH PO; +OMEPRAZOLE40 MG PO; +VENTOLIN HFA18 GM INH
== END 2025-03-26 ==
LOC: PT 13:00
PROVIDERS: ATTEND Internal Medicine Cardiovascular Disease
DX: R26.89 Other abnormalities of gait and mobility (principal)

== ENCOUNTER 2025-04-24 09:00 | Outpatient (RCR) | payer MEDICARE | END 2025-04-26 | LOC: PT 09:00 | PROVIDERS: ATTEND Internal Medicine Cardiovascular Disease | DX: R26.89 Other abnormalities of gait and mobility (principal) ==

== ENCOUNTER 2025-05-08 10:00 | Outpatient (RCR) | payer MEDICARE | END 2025-05-26 | LOC: PT 10:00 | PROVIDERS: ATTEND Internal Medicine Cardiovascular Disease | DX: R26.89 Other abnormalities of gait and mobility (principal) ==